=== PATIENT | male | born 1955 | race Caucasian/White ===

== ENCOUNTER → 2024-04-07 | Outpatient (CLI) | payer MEDICARE, OTHER ==
--- NOTE | 2024-04-12 12:54 | MR ---
EXAMINATION TYPE: MR Prostate wo/w con DATE OF EXAM: 04/07/2024 9:55 AM COMPARISON: None. CLINICAL INDICATION: Male, 68 years old with history of N40.2 NODULAR PROSTATE WO LOWER UT SYMPTOMS; NODULAR PROSTATE WO LOWER UT SYMPTOMS TECHNIQUE: Multi-planar, multi-sequence imaging of the pelvis is performed prior to and following the uncomplicated administration of bolus intravenous gadolinium. IV Contrast: 9ML mL Gadavist Interpretive Criteria: PI-RADS v2.1 SERUM PSA: 6.39 FEB 04 11.11 MAR 07 SURGICAL PATHOLOGY: Biopsy done 2018 per [facility] office, unable to get results too old. FINDINGS: Prostatic dimensions: 5.2 x 5.1 x 4.1 cm. Ellipsoid Volume:56.93 (PSA density=0.20 ng/mL/mL) CENTRAL GLAND (Central and Transition Zones/CZ+TZ): Multiple bilateral, heterogenous appearing hypertrophic stromal nodules, without suspicious lesion. M edian lobe hypertrophy with protrusion into the base of the bladder. (PI-RADS 2) PERIPHERAL ZONE (PZ): Well-circumscribed low T2. Just left of midline/mid gland/apex, however, there is no associated DWI o r ADC signal abnormality associated with this area and felt to be sequela of prior prostatitis and/or scarring. . (PI-RADS 2) SEMINAL VESICLES (SV): Symmetric and unremarkable. PERIPROSTATIC TISSUES: Unremarkable. LYMPH NODES: No enlarged pelvic lymph node. REMAINING PELVIS: Trabeculated bladder wall likely secondary to chronic bladder outlet obstruction. No abnormal free or organized intrapelvic fluid collection. No pathologic bowel dilation or mural thickening. Colonic diverticula are present. No hernia visualized, there is fatty changes to the inguinal canals bilaterally. OSSEOUS STRUCTURES: No suspicious osseous abnormality. IMPRESSION: 1. No specific features for high-risk prostate cancer. Maximum PI-RADS score: 2. 2. Moderate BPH, estimated gland volume 56.93 mL. 3. No suspicious osseous lesion. No lymphadenopathy. No evidence of prostate adenocarcinoma involving the periprostatic tissues. [facility], , 04/12/2024 12:52 PM
== END | disposition home or self-care (01) ==
LOC: RADMRIMAIN 08:23
PROVIDERS: ATTEND Urology
DX: N40.0 Benign prostatic hyperplasia without lower urinary tract symptoms (principal)
CPT/HCPCS: 72197; A9585